=== PATIENT | male | born 1995 | race African-American/Black ===

== ENCOUNTER 2021-04-07 14:59 | Emergency (ER) | payer MEDICAID ==
[2021-04-07 15:10] VITALS: BP 200/96
[2021-04-07] MEDS ORDERED: TETANUS/DIPHTHERIA/PERTUSSIS 0.5 ML SYRINGE IM ONE (15:10)
[2021-04-07] MEDS ORDERED: AMOX/CLAV 875 MG/125 MG TABLET PO STA (15:47)
--- NOTE | 2021-04-07 15:49 | ED Physician Documentation ---
PD HPI LOWER EXT INJURY - Stated complaint Stated Complaint: DOG BITE - Chief complaint Chief Complaint: Wound - History obtained from History obtained from: Patient - Additional information Additional information: Bitten on the back of the right thigh by the neighbors dog, not a stray in contrast to the nurses notes, happened earlier today. No other injuries. Tetanus is not up-to-date. Review of Systems Constitutional: reports: Reviewed and negative Eyes: reports: Reviewed and negative Ears: reports: Reviewed and negative Nose: reports: Reviewed and negative PD PAST MEDICAL HISTORY - Present Medications Home Medications: Ambulatory Orders Medication Instructions Recorded Confirmed Amox/Clav 875/125 [Augmentin] 1 each PO Q12H #10 tablet 04/07/21 - Allergies Allergies/Adverse Reactions: Allergies Allergy/AdvReac Type Severity Reaction Status Date / Time No Known Drug Allergies Allergy Verified 04/07/21 15:04 PD ED PE NORMAL - Vitals Vital signs reviewed: Yes - General General: Alert and oriented X 3, No acute distress - HEENT HEENT: PERRL, EOMI - Extremities Extremities: Other (He has puncture wounds consistent with a dog bite over the right mid hamstring. Nothing gaping or that needs suturing. It was irrigated during exam and a dressing was placed.) - Neuro Neuro: Alert and oriented X 3, Normal speech Results - Vitals Vitals: Vital Signs - 24 hr 04/07/21 15:07 Temperature 36.4 C L Heart Rate 80 Respiratory 18 Rate Blood Pressure 200/96 H O2 Saturation 100 Oxygen O2 Source Room air Departure - Departure Disposition: 01 Home, Self Care Clinical Impression: Animal bite with open wound Condition: Good Record reviewed to determine appropriate education?: Yes Instructions: Bites Scratches Animal Prescriptions: Amox/Clav 875/125 [Augmentin] 1 each PO Q12H #10 tablet Comments: Prescription sent to [facility] in [place] Come back for any signs of infection which would include: Redness, swelling, drainage, increased pain, or fevers. You can wash it soap and water. Keep it covered and moist with bacitracin ointment which is available over the counter; avoid neosporin. Your blood pressure was elevated today on check into the emergency department. This does not mean that you have hypertension, it is a common phenomenon to come to the emergency department and have elevated blood pressure. I recommend that you see your primary care physician within the week to have it rechecked when you are feeling better.
== END 2021-04-07 16:00 | disposition home or self-care (01) ==
LOC: ED 14:59
DX: S71.151A Open bite, right thigh, initial encounter (principal); W54.0XXA Bitten by dog, initial encounter; Z23 Encounter for immunization
CPT/HCPCS: 90471; 90715; 99283; A9270